=== PATIENT | female | born 1950 | race Caucasian/White ===

== ENCOUNTER → 2016-09-03 | Outpatient (CLI) | payer MEDICARE, OTHER ==
[~2016-09-03] MED LIST: ATENOLOL PO; PRILOSEC PO; SIMVASTATIN PO; VESICARE; ZOLOFT; [UNRECOGNIZED DRUG - REMARK]
== END ==
LOC: MC.RAD 08-27 10:20
DX: Z12.31 Encounter for screening mammogram for malignant neoplasm of breast (principal)

== ENCOUNTER → 2016-11-15 | Outpatient (CLI) | payer MEDICARE, OTHER | LOC: COL.PUL 10-31 11:00 | DX: R06.02 Shortness of breath (principal); R05 Cough ==

== ENCOUNTER → 2017-04-25 | Outpatient (CLI) | payer MEDICARE, OTHER | LOC: MHCPAIN 09:12 | DX: G89.29 Other chronic pain (principal); M47.27 Other spondylosis with radiculopathy, lumbosacral region; M53.3 Sacrococcygeal disorders, not elsewhere classified; G62.9 Polyneuropathy, unspecified | CPT/HCPCS: G0463 ==

== ENCOUNTER → 2017-10-14 | Outpatient (CLI) | payer MEDICARE, OTHER | LOC: MC.RAD 10:26 | DX: Z12.31 Encounter for screening mammogram for malignant neoplasm of breast (principal) ==

== ENCOUNTER 2017-10-17 11:11 | Day surgery (SDC) | payer MEDICARE, OTHER ==
[~2017-10-17] VITALS: Ht 165.1 cm; Wt 110.0 kg
[2017-10-17] MEDS ORDERED: ZOLOFT 100MG100 MG PO (11:56)
[2017-10-17] MEDS ORDERED: TESSALON P100 MG/CAP PO (11:57)
[2017-10-17] MEDS ORDERED: MASON NATURAL2000 IU PO (11:57)
[2017-10-17] MEDS ORDERED: TENORMIN 5050 MG/TAB PO (11:58)
[2017-10-17] MEDS ORDERED: ZYRTEC 10MG10 MG PO (11:58)
[2017-10-17] MEDS ORDERED: ZOCOR 40MG40 MG PO (11:59)
[2017-10-17] MEDS ORDERED: FERRO-TIME325 MG PO (11:59)
[2017-10-17] MEDS ORDERED: NEURONTIN600 MG/TAB PO (12:00)
[2017-10-17 12:14] VITALS: BP 119/87; PULSE 68; TEMP 97.7
[2017-10-17 16:55] VITALS: BP 108/69; PULSE 65; TEMP 97.7
[2017-10-17 17:15] VITALS: BP 149/94; PULSE 85
[2017-10-17 17:30] VITALS: BP 123/691; PULSE 62
== END 2017-10-17 17:56 | disposition home or self-care (01) ==
LOC: SDCO 11:11
DX: N39.46 Mixed incontinence (principal); I10 Essential (primary) hypertension; E78.5 Hyperlipidemia, unspecified; E66.9 Obesity, unspecified; Z68.39 Body mass index [BMI] 39.0-39.9, adult; K21.9 Gastro-esophageal reflux disease without esophagitis; N32.81 Overactive bladder; M54.30 Sciatica, unspecified side; G62.9 Polyneuropathy, unspecified; Z88.5 Allergy status to narcotic agent; F32.9 Major depressive disorder, single episode, unspecified
CPT/HCPCS: C1767; C1778; C1787; C1894; J0690; J1100; J2250; J2704; J3010; J7120

== ENCOUNTER → 2017-12-26 | Outpatient (CLI) | payer MEDICARE, OTHER ==
[~2017-12-26] MED LIST changes: +ANTIVERT 25MG25 MG PO; +FERRO-TIME325 MG PO; +FLONASE NASAL S16 GM NS; +MASON NATURAL2000 IU PO; +NEURONTIN400 MG/CAP PO; +NEURONTIN600 MG/TAB PO; +OMNICEF 300MG300 MG PO; +TENORMIN 5050 MG/TAB PO; +TESSALON P100 MG/CAP PO; +ZOCOR 40MG40 MG PO; +ZOLOFT 100MG100 MG PO; +ZYRTEC 10MG10 MG PO
== END ==
LOC: COL.RAD 10:53
DX: E04.2 Nontoxic multinodular goiter (principal)

== ENCOUNTER → 2018-01-01 | Outpatient (CLI) | payer MEDICARE, OTHER ==
[~2018-01-01] VITALS: Ht 165.1 cm; Wt 108.2 kg
[2018-01-01 13:20] VITALS: BP 137/96; PULSE 88
[2018-01-01 15:10] VITALS: BP 142/94; PULSE 70
== END ==
LOC: COL.RAD 12:57
DX: E04.1 Nontoxic single thyroid nodule (principal)

== ENCOUNTER → 2018-09-29 | Outpatient (CLI) | payer MEDICARE, OTHER | LOC: MC.RAD 14:49 | DX: Z12.31 Encounter for screening mammogram for malignant neoplasm of breast (principal) ==

== ENCOUNTER → 2019-03-15 | Outpatient (CLI) | payer MEDICARE, OTHER | LOC: MC.RAD 09:17 | DX: Z12.31 Encounter for screening mammogram for malignant neoplasm of breast (principal) ==

== ENCOUNTER → 2019-12-15 | Outpatient (CLI) | payer MEDICARE, OTHER | LOC: COL.LAB 11:47 | DX: E53.9 Vitamin B deficiency, unspecified (principal); E07.9 Disorder of thyroid, unspecified; F03.90 Unspecified dementia, unspecified severity, without behavioral disturbance, psychotic disturbance, mood disturbance, and anxiety; Z79.899 Other long term (current) drug therapy ==

== ENCOUNTER → 2020-01-04 | Outpatient (CLI) | payer MEDICARE, OTHER | LOC: COL.RAD 07:49 | DX: M48.07 Spinal stenosis, lumbosacral region (principal); M47.817 Spondylosis without myelopathy or radiculopathy, lumbosacral region; M41.86 Other forms of scoliosis, lumbar region ==

== ENCOUNTER → 2020-04-04 | Outpatient (CLI) | payer MEDICARE, OTHER | LOC: MC.RAD 13:33 | DX: Z12.31 Encounter for screening mammogram for malignant neoplasm of breast (principal) ==